=== PATIENT | female | born 1955 | race Caucasian/White ===

== ENCOUNTER → 2017-08-18 | Outpatient (CLI) | payer OTHER, BC ==
[~2017-08-18] MED LIST: ACET1TAB84 PO; EFFSR150 PO; HYDC25 PO; WLLSRUNK PO
--- NOTE | 2017-08-18 14:42 | DIAGNOSTIC IMAGING REPORT ---
L RIBS UNILATERAL MIN 2 VIEWS CLINICAL HISTORY: Left lower rib pain. Fall. COMPARISON STUDY: Chest 09/16/2011. FINDINGS: Nondisplaced left lateral ninth and 10th rib fractures. No pneumothorax. No pleural effusions. The heart is normal in size. The lungs are clear. IMPRESSION: Nondisplaced left lateral ninth and 10th rib fractures. No pneumothorax. Electronically signed by: Macario Alfonso M.D. 08/18/2017 2:41 PM Dictated Date/Time: 08/18/2017 2:38 PM
== END | disposition home or self-care (01) ==
LOC: C.RAD1850 13:35
PROVIDERS: ATTEND Nurse Practitioner Adult Health
DX: R07.81 Pleurodynia (principal); W19.XXXA Unspecified fall, initial encounter